=== PATIENT | male | born 1950 | race Caucasian/White ===

== ENCOUNTER → 2017-09-14 | Outpatient (CLI) | payer OTHER ==
[~2017-09-14] MED LIST: ASPI81TA28 PO; CLOP1TAB15 PO; LISI-461 PO; MISCTAB78 PO; MULT-506 PO; SIMV40TA2 PO; ULT50X PO
--- NOTE | 2017-09-14 09:52 | DIAGNOSTIC IMAGING REPORT ---
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 Linear subsegmental opacities left lung base persist. Decreased amount of left pleural fluid from comparison. No definite pneumothorax. Right lung is clear. Bones appear intact. IMPRESSION: 1. Volume loss of the left lung base from prior left basilar resection appears unchanged with decreased amount of left pleural fluid. 2. No definite pneumothorax identified.. The above report was generated using voice recognition software. It may contain grammatical, syntax or spelling errors. Electronically signed by: Lance Corea M.D. 09/14/2017 9:51 AM Dictated Date/Time: 09/14/2017 9:48 AM
== END | disposition home or self-care (01) ==
LOC: C.RAD1850 09:39
PROVIDERS: ATTEND Surgery
DX: R91.1 Solitary pulmonary nodule (principal)